=== PATIENT | male | born 1965 | race Caucasian/White ===

== ENCOUNTER 2016-07-03 08:51 | Emergency (ER) | payer BC, OTHER ==
[2016-07-03] MEDS ORDERED: hydrOXYzine 25 MG TAB ONE (09:02)
== END 2016-07-03 10:05 | disposition home or self-care (01) ==
LOC: BURERS 08:51
DX: T78.3XXA Angioneurotic edema, initial encounter (principal); E11.9 Type 2 diabetes mellitus without complications; I10 Essential (primary) hypertension; E78.5 Hyperlipidemia, unspecified; Z79.84 Long term (current) use of oral hypoglycemic drugs; Z79.82 Long term (current) use of aspirin; Z79.899 Other long term (current) drug therapy
CPT/HCPCS: 36416; 99283

== ENCOUNTER 2016-07-20 09:37 | Outpatient (CLI) | payer BC ==
[2016-07-20 13:05] LABS: #Basophils 0.1 thou/uL (0.0-0.2); #Eosinphils 0.1 thou/uL (0.0-0.7); #Lymphocytes 2.2 thou/uL (1.20-3.40); #Monocytes 0.3 thou/uL (0.11-0.59); #Neutrophils 3.3 thou/uL (1.40-6.50); %Eosinophils 1.2 % (0.0-10.0); %Lymphocytes 36.7 % (21.0-51.0); %Monocytes 5.7 % (0.0-10.0); %Neutrophils 55.4 % (42.0-75.0); Hemoglobin 14.6 g/dL (14.0-18.0); Mean Corpuscular HGB CONC 33.8 g/dL (32.0-36.0); Mean Corpuscular Hemoglobin 29.9 pg (27.0-31.0); Mean Corpuscular Volume 88.6 fl (80.0-94.0); Mean Platelet Volume 6.2 fL (7.4-10.4); Platelet Count 389 thou/uL (130-400); Red Blood Cell (RBC) Count 4.88 mill/uL (4.70-6.10); White Blood Cell (WBC) Count 5.9 thou/uL (4.8-10.8)
[2016-07-20 13:51] LABS: ALT (SGPT) 46 U/L (8-55); AST (SGOT) 32 U/L (5-34); Albumin 4.4 g/dL (3.5-5.0); Alkaline Phosphatase 53 U/L (40-150); Anion Gap 14 mmol/L (10-20); BUN (Urea Nitrogen) 15 mg/dL (8.4-25.7); Bilirubin, Total 0.5 mg/dL (0.2-1.2); Calc. Creatinine Clearance 0 mL/min (70-130); Calcium 8.9 mg/dL (7.8-10.44); Carbon Dioxide 23 mmol/L (22-29); Cardiac Risk 4.9 (Less than 4.5); Chloride 107 mmol/L (98-107); Cholesterol 131 mg/dl (< 200 Desired); Estimated GFR-MDRD 86; Globulin 3.1 g/dL (2.4-3.5); Glucose 67 mg/dL (70-105); HDL Cholesterol 27 mg/dL (>60 Neg Risk); LDL Cholesterol, Calculated 94 mg/dL; Potassium 4.2 mmol/L (3.5-5.1); Protein, Total 7.5 g/dL (6.0-8.3); Sodium 140 mmol/L (136-145); Triglycerides 52 mg/dL (Less than 150)
[2016-07-20 14:09] LABS: Hemoglobin A1c 6.4 % (4.0-6.0)
[2016-07-20 17:28] LABS: Creatinine, Urine 37.33 mg/dL (63-166); Microalbumin Urine Less than 1.0 mg/dL (0.5-50.0); Microalbumin/Creat Ratio 26.8 mg/g (Less than 30)
== END 2016-07-20 09:38 | disposition home or self-care (01) ==
LOC: HPCALD 09:37
PROVIDERS: ATTEND Family Medicine
DX: E78.5 Hyperlipidemia, unspecified (principal); E11.40 Type 2 diabetes mellitus with diabetic neuropathy, unspecified; I10 Essential (primary) hypertension
CPT/HCPCS: 36415; 80053; 80061; 82043; 83036; 84443; 85025

== ENCOUNTER 2017-04-12 09:13 | Outpatient (CLI) | payer BC ==
--- NOTE | 2017-04-12 17:04 | RAD ---
CERVICAL SPINE FIVE VIEWS 04/12/17 There is mild disc space narrowing at C6-C7. Some minimal anterior osteophytes are seen at this level . There is mild straightening of the cervical spine which could be due to spasm. There is no gross fr acture, dislocation, or soft tissue swelling. The C1 dens distance is normal. The neural foramina at C3-C5 shows slight narrowing on the left side and moderate narrowing on the right. The other foramina appear patent with no gross sign of impingement. IMPRESSION: Mild disc space narrowing at C6-C7. Mild to moderate foraminal narrowing bilaterally at C3-C4. If the findings correlate with clinical symptoms, then an MRI as a followup could be useful. POS: HOME
== END 2017-04-12 09:14 | disposition home or self-care (01) ==
LOC: BURRAD 09:13
PROVIDERS: ATTEND Family Medicine
DX: R20.2 Paresthesia of skin (principal); M99.71 Connective tissue and disc stenosis of intervertebral foramina of cervical region; M99.81 Other biomechanical lesions of cervical region
CPT/HCPCS: 72050

== ENCOUNTER 2024-11-20 16:35 | Outpatient (CLI) | payer OTHER | END 2024-11-20 16:36 | disposition home or self-care (01) | LOC: BURRAD 16:35 | PROVIDERS: ATTEND Nurse Practitioner Family | DX: S59.901A Unspecified injury of right elbow, initial encounter (principal); M25.421 Effusion, right elbow; M77.8 Other enthesopathies, not elsewhere classified; M79.89 Other specified soft tissue disorders ==